=== PATIENT | male | born 1980 | race Caucasian/White ===

== ENCOUNTER 2025-03-23 15:48 | Emergency (ER) | payer OTHER ==
[~2025-03-23] VITALS: Ht 180.3 cm; Wt 118.2 kg
[2025-03-23 15:51] VITALS: BP 134/80; PULSE 68; RESP 18; TEMP 98; O2SAT 99
[2025-03-23] MEDS ORDERED: BUPR1TAB46 SL ×4 (15:56→16:39)
[2025-03-23] MEDS: BUPRENORPHINE HCL/NALOXONE HCL 8-2 MG SUBLINGUAL TABLET SL ONE (16:19)
== END 2025-03-23 16:58 | disposition home or self-care (01) ==
LOC: EMS 15:56
DX: F11.10 Opioid abuse, uncomplicated (principal); Z76.0 Encounter for issue of repeat prescription; Z79.899 Other long term (current) drug therapy
CPT/HCPCS: 99283